=== PATIENT | female | born 1965 | race Caucasian/White ===

== ENCOUNTER 2024-07-29 18:23 | Emergency (ER) | payer OTHER, SELFPAY ==
[2024-07-29 18:29] VITALS: BP 157/82; PULSE 82; TEMP 36.7; O2SAT 97; BMI 30.7
--- NOTE | 2024-07-29 18:46 | ED.ABDPAIN1 ---
HPI - Abdominal Pain General Chief Complaint: Abdominal Pain Stated Complaint: abd pain Time Seen by Provider: 07/29/24 18:46 Source: patient Mode of arrival: walk-in Limitations: no limitations History of Present Illness HPI narrative: 58 year old female presents to the ED for abd pain, N/V/D. Onset was 2 months ago. The pain is to the LUE and LLQ. Reports bright red blood in her stools today. Denies fever, chills, injury, CP, SOB, dizziness, urinary sx. She was evaluated at an urgent care this morning and prescribed Zofran, Lomotil, Carafate, and Pepcid. She is a recovering addict. Related Data Home Medications ?Medication ?Instructions ?Recorded ?Confirmed dapagliflozin propanediol 10 mg 10 mg PO DAILY 07/29/24 07/29/24 tablet (Farxiga) famotidine 20 mg tablet 20 mg PO DAILY 07/29/24 07/29/24 loperamide 2 mg capsule 2 mg PO Q8H 07/29/24 07/29/24 ondansetron 4 mg disintegrating 4 mg PO Q8H 07/29/24 07/29/24 tablet quetiapine 100 mg tablet 100 mg PO BID 07/29/24 07/29/24 sucralfate 1 gram tablet 1 g PO QID 07/29/24 07/29/24 Allergies Allergy/AdvReac Type Severity Reaction Status Date / Time divalproex sodium (From Allergy Severe Rash Verified 07/29/24 18:29 Depakote) furosemide (From Lasix) Allergy Severe Rash Verified 07/29/24 18:29 diphenhydramine (From AdvReac Severe Agitated Verified 07/29/24 18:28 Benadryl) prochlorperazine (From AdvReac Severe Irritable Verified 07/29/24 18:28 Compazine) Review of Systems ROS Constitutional Denies: fever or chills Ears, nose, mouth, and throat Denies: throat pain or neck pain Cardiovascular Denies: chest pain Respiratory Denies: shortness of breath or cough Gastrointestinal Reports: abdominal pain, nausea, vomiting, diarrhea and blood in stool Genitourinary Denies: painful urination, urinary frequency, urinary urgency or blood in urine Musculoskeletal Denies: back pain or neck pain Integumentary/Breast Denies: rash Neurological Denies: headache or dizziness PFSH [facility] Social History Little interest or pleasure in doing things: not at all Feeling down, depressed, or hopeless: not at all Exam Constitutional Vital Signs, click to edit/add: Last Vital Signs Temp 98.1 F 07/29/24 18:29 Pulse 82 07/29/24 18:29 Resp 20 07/29/24 18:29 BP 157/82 H 07/29/24 18:29 Pulse Ox 97 07/29/24 18:29 O2 Del Method Room Air 07/29/24 18:29 Common normals: no apparent distress and oriented x3 General appearance: cooperative HENMT Common normals: moist oral mucous membranes Eye Common normals: conjunctivae normal and no scleral icterus Neck & C-Spine Common normals: supple Chest Chest: symmetrical chest wall rise Respiratory Common normals: normal respiratory effort Effort & inspection: able to speak in complete sentences and symmetric chest movement Cardio Common normals: regular rate and regular rhythm GI Common normals: Normal to inspection, nondistended, normoactive bowel sounds present and soft to palpation Inspection: no abdominal distension Palpation: tender Details: epigastric, LLQ and LUQ Neuro Common normals: oriented x3 and moves all extremities Sensorium/orientation: awake and alert Speech: speech normal Course Vital Signs Vital signs: Vital Signs Temperature 98.1 F 07/29/24 18:29 Pulse Rate 82 07/29/24 18:29 Respiratory Rate 20 07/29/24 18:29 Blood Pressure 157/82 H 07/29/24 18:29 Pulse Oximetry 97 07/29/24 18:29 Oxygen Delivery Method Room Air 07/29/24 18:29 Temperature 98.1 F 07/29/24 18:29 Pulse Rate 82 07/29/24 18:29 Respiratory Rate 20 07/29/24 18:29 Blood Pressure 157/82 H 07/29/24 18:29 Pulse Oximetry 97 07/29/24 18:29 Oxygen Delivery Method Room Air 07/29/24 18:29 MDM - Abdominal Pain MDM Narrative Medical decision making narrative: WBC count was unremarkable. Additional laboratory studies were unremarkable. She was hemodynamically stable. CT scan was negative for acute findings. Findings were discussed. Pt was given IV fluids, Zofran, Protonix, and Ativan here. The patient reported she was having a panic attack here and requested something for anxiety. She reported she was feeling much better prior to discharge. She was encouraged to follow up with her pcp for a recheck, further evaluation and treatment. She was encouraged to take the medication she was prescribed at the urgent care this morning as directed. Return precautions were discussed. Medical Records Attestation: I reviewed the patient's medical records. Lab Data Attestation: I reviewed the patient's lab results. Labs: Lab Results 07/29/24 07/29/24 Range/Units 19:15 19:29 WBC 9.0 (4.0-11.0) 10^3/uL RBC 4.61 (4.20-5.40) 10^6/uL Hgb 13.6 (12.0-16.0) g/dL Hct 39.0 (36.0-48.0) % MCV 84.6 (81.0-99.0) fL MCH 29.5 (26.7-34.0) pg MCHC 34.9 (29.9-35.2) g/dL RDW 13.0 (11.0-15.0) % Plt Count 261 (150-450) 10^3/uL MPV 10.7 (9.5-13.5) fL Neut % (Auto) 68.6 (43.0-75.0) % Lymph % (Auto) 23.7 (20.5-60.0) % [place] % (Auto) 6.1 (1.7-12.0) % Eos % (Auto) 0.7 L (0.9-7.0) % Baso % (Auto) 0.8 (0.2-2.0) % Neut # (Auto) 6.2 (1.4-6.5) 10^3/uL Lymph # (Auto) 2.1 (1.2-3.8) 10^3/uL [place] # (Auto) 0.6 (0.3-0.8) 10^3/uL Eos # (Auto) 0.1 (0.0-0.7) 10^3/uL Baso # (Auto) 0.1 (0.0-0.1) 10^3/uL Abs Immat Gran (auto) 0.01 (0.00-0.03) 10^3/uL Imm/Tot Granulo (auto) 0.1 (0.0-0.5) % Sodium 145 (136-145) mmol/L Potassium 3.8 (3.5-5.1) mmol/L Chloride 107 (98-107) mmol/L Carbon Dioxide 22.8 (21.0-32.0) mmol/L Anion Gap 19.0 BUN 12.0 (7.0-18.0) mg/dL Creatinine 1.01 (0.55-1.02) mg/dL Est GFR ( Amer) >60 (>=60 mL/min/1.73m^2) Est GFR (Non-Af Amer) 56 L (>=60 mL/min/1.73m^2) BUN/Creatinine Ratio 11.9 Glucose 114 H (74-106) mg/dL Calcium 10.5 H (8.5-10.1) mg/dL Total Bilirubin 1.4 H (0.2-1.0) mg/dL AST 25 (15-37) U/L ALT 33 (14-59) U/L Alkaline Phosphatase 100 (46-116) U/L Total Protein 7.9 (6.4-8.2) g/dL Albumin 4.5 (3.4-5.0) g/dL Globulin 3.4 g/dL Albumin/Globulin Ratio 1.3 Lipase 25.0 (16.0-77.0) U/L Urine Color Yellow (YELLOW) Urine Clarity Clear (CLEAR) Urine pH 6.0 (5.0-9.0) Ur Specific [place] 1.015 (1.005-1.025) Urine Protein Negative (NEG/TRACE) mg/dL Urine Glucose (UA) >=1000 A (NEGATIVE) mg/dL Urine Ketones >=80 A (NEGATIVE) mg/dL Urine Occult Blood Negative (NEGATIVE) Urine Nitrite Negative (NEGATIVE) Urine Bilirubin Negative (NEGATIVE) Urine Urobilinogen 0.2 (0.2-1.0) EU/dL Ur Leukocyte Esterase Negative (NEGATIVE) Urine HCG, Qual Negative (NEGATIVE) Imaging Data CT scan - abdomen: Attestation: I have reviewed the pertinent imaging results. Radiologist's impression: 1. Fatty infiltration of the liver. 2. Cholecystectomy 3. Possible mild enteritis and mild mesenteric adenitis. 4. No bowel or renal obstruction. 5. No free fluid or free air. 6. No features of acute appendicitis. 7. No pyelonephritis or cystitis. 8. No acute process seen in the left colon. 9. No features of gastritis or pancreatitis. Discharge Plan Discharge Chief Complaint: Abdominal Pain Clinical Impression: Abdominal pain, Nausea vomiting and diarrhea Patient Disposition: Home, Self-Care Time of Disposition Decision: 22:02 Condition: Good Mode of Transportation: Private Vehicle Prescriptions / Home Meds: No Action dapagliflozin propanediol [Farxiga] 10 mg tablet 10 mg PO DAILY famotidine 20 mg tablet 20 mg PO DAILY loperamide 2 mg capsule 2 mg PO Q8H ondansetron 4 mg tablet,disintegrating 4 mg PO Q8H quetiapine 100 mg tablet 100 mg PO BID sucralfate 1 gram tablet 1 g PO QID Print Language: [place] Instructions: Acute Nausea and Vomiting (ED), Acute Diarrhea (ED), Abdominal Pain (ED) Additional Instructions: Follow up with your primary care provider; call tomorrow morning to schedule an appointment. Take the medication from the urgent care as directed. Return to the ER if your condition worsens. Referrals: Physician,Non-Staff, MD [Primary Care Provider] - 1 week
[2024-07-29] MEDS: PANTOPRAZOLE SODIUM 40 MG VIAL IV (19:40)
[2024-07-29] MEDS: 0.9 % SODIUM CHLORIDE 1,000 ML 999 ML IV (19:40)
[2024-07-29] MEDS: ONDANSETRON PF 4 MG/2 ML VIAL IV (19:40)
[2024-07-29 19:52] LABS: Basophils Absolute Auto 0.1 10^3/uL (0.0-0.1); Basophils Percent Auto 0.8 % (0.2-2.0); Eosinophils Absolute Auto 0.1 10^3/uL (0.0-0.7); Eosinophils Percent Auto 0.7 % (0.9-7.0); Hemoglobin 13.6 g/dL (12.0-16.0); Immature Granulocytes Abs Auto 0.01 10^3/uL (0.00-0.03); Immature Granulocytes Pct Auto 0.1 % (0.0-0.5); Lymphocytes Absolute Auto 2.1 10^3/uL (1.2-3.8); Lymphocytes Percent Auto 23.7 % (20.5-60.0); Mean Corpuscular HGB Conc 34.9 g/dL (29.9-35.2); Mean Corpuscular Hemoglobin 29.5 pg (26.7-34.0); Mean Corpuscular Volume 84.6 fL (81.0-99.0); Mean Platelet Volume 10.7 fL (9.5-13.5); Monocytes Absolute Auto 0.6 10^3/uL (0.3-0.8); Monocytes Percent Auto 6.1 % (1.7-12.0); Neutrophils Absolute Auto 6.2 10^3/uL (1.4-6.5); Neutrophils Percent Auto 68.6 % (43.0-75.0); Platelet Count 261 10^3/uL (150-450); Red Blood Count 4.61 10^6/uL (4.20-5.40)
[2024-07-29 19:54] LABS: Bilirubin Urine NEGATIVE (NEGATIVE); Blood Urine NEGATIVE (NEGATIVE); Clarity Urine CLEAR (CLEAR); Color Urine YELLOW (YELLOW); Glucose Urine UA >=1000 mg/dL (NEGATIVE); HCG Qualitative Urine* NEGATIVE (NEGATIVE); Internal Control Within Normal Limits; Ketones Urine >=80 mg/dL (NEGATIVE); Leukocyte Esterase Urine NEGATIVE (NEGATIVE); Nitrite Urine NEGATIVE (NEGATIVE); Protein Urine NEGATIVE (NEG/TRACE); Specific Gravity Urine 1.015 (1.005-1.025); Urobilinogen Urine 0.2 EU/dL (0.2-1.0)
[2024-07-29 19:56] LABS: Urine Microscopic Indicated NO
[2024-07-29] MEDS: LORAZEPAM 2 MG/ML VIAL 1 MG IV (20:05)
[2024-07-29 20:12] LABS: Alanine Aminotransferase 33 U/L (14-59); Albumin Globulin Ratio 1.3; Albumin Level 4.5 g/dL (3.4-5.0); Alkaline Phosphatase 100 U/L (46-116); Aspartate Amino Transferase 25 U/L (15-37); BUN Creatinine Ratio 11.9; Bilirubin Total 1.4 mg/dL (0.2-1.0); Calcium 10.5 mg/dL (8.5-10.1); Carbon Dioxide 22.8 mmol/L (21.0-32.0); Chloride 107 mmol/L (98-107); Estimated GFR (African America >60 (>=60 mL/min/1.73m^2); Estimated GFR (Non-African Ame 56 (>=60 mL/min/1.73m^2); Globulin 3.4 g/dL; Glucose 114 mg/dL (74-106); Potassium 3.8 mmol/L (3.5-5.1); Sodium 145 mmol/L (136-145); Total Protein 7.9 g/dL (6.4-8.2)
[2024-07-29 22:21] VITALS: BP 129/60; PULSE 82; O2SAT 100
== END 2024-07-29 23:17 | disposition home or self-care (01) ==
PROVIDERS: Nurse Practitioner Family; Emergency Provider Emergency Medicine; Family Provider Family Medicine
DX: R10.9 Unspecified abdominal pain (principal); R11.2 Nausea with vomiting, unspecified; R19.7 Diarrhea, unspecified; Z90.49 Acquired absence of other specified parts of digestive tract
CPT/HCPCS: 36415; 74177; 80053; 81003; 83690; 84703; 85025; 96361; 96374; 96375; 99285; G0328; J2060; J2405; Q9967